=== PATIENT | female | born 1995 | race Caucasian/White ===

== ENCOUNTER 2019-06-06 08:49 | Emergency (ER) | payer MEDICAID ==
[~2019-06-06] VITALS: Ht 165.1 cm; Wt 90.9 kg
[2019-06-06 09:08] LABS: URINE BLOOD DIPSTICK NEGATIVE (NEGATIVE); URINE GLUCOSE - DIPSTICK NEGATIVE (NEGATIVE); URINE KETONE NEGATIVE (NEGATIVE); URINE LEUK ESTERASE NEGATIVE (NEGATIVE); URINE NITRITE - DIPSTICK NEGATIVE (Negative); URINE PH 5.5 (4.5-8.0); URINE PROTEIN - DIPSTICK TRACE mg/dL (NEG-TRACE); URINE SPECIFIC GRAVITY >=1.030; URINE UROBILINOGEN - DIPSTICK 0.2 E.U./dL (0.2)
[2019-06-06 09:18] LABS: URINE BILIRUBIN - DIPSTICK SMALL (NEGATIVE)
[2019-06-06 09:19] LABS: URINE COLOR DK. YELLOW
[2019-06-06] MEDS ORDERED: ULTRAM50 M1 PO (10:30)
[2019-06-06 10:42] VITALS: BP 106/55
== END 2019-06-06 10:42 | disposition home or self-care (01) ==
LOC: ED 08:49
PROVIDERS: Emergency Medicine
DX: S90.31XA Contusion of right foot, initial encounter (principal); W51.XXXA Accidental striking against or bumped into by another person, initial encounter; Y93.83 Activity, rough housing and horseplay; Y92.009 Unspecified place in unspecified non-institutional (private) residence as the place of occurrence of the external cause

== ENCOUNTER 2020-09-20 08:01 | Emergency (ER) | payer SELFPAY ==
[~2020-09-20] VITALS: Ht 165.1 cm; Wt 95.0 kg
[~2020-09-20 08:01] MED LIST: ULTRAM50 M1 PO
[2020-09-20] MEDS ORDERED: TESSALON PER100 MG PO (09:45)
[2020-09-20 10:40] VITALS: BP 130/71
== END 2020-09-20 10:40 | disposition home or self-care (01) | DRG 153 ==
LOC: ED 08:01
DX: J06.9 Acute upper respiratory infection, unspecified (principal); Z20.828 Contact with and (suspected) exposure to other viral communicable diseases